=== PATIENT | female | born 1985 | race Caucasian/White ===

== ENCOUNTER → 2017-02-02 | Outpatient (CLI) | payer OTHER | END | disposition home or self-care (01) | LOC: LAB.O 09:03 | PROVIDERS: ATTEND Family Medicine | DX: E03.9 Hypothyroidism, unspecified (principal) ==

== ENCOUNTER → 2019-06-28 | Outpatient (CLI) | payer OTHER | LOC: GMAL 11:53 | PROVIDERS: ATTEND Family Medicine | DX: I10 Essential (primary) hypertension (principal); R73.9 Hyperglycemia, unspecified; Z13.220 Encounter for screening for lipoid disorders ==

== ENCOUNTER → 2020-03-18 | Outpatient (CLI) | payer OTHER | LOC: GMAL 11:26 | PROVIDERS: ATTEND Family Medicine | DX: M79.641 Pain in right hand (principal); R60.9 Edema, unspecified ==